=== PATIENT | female | born 1985 | race Two or more races ===

== ENCOUNTER → 2024-08-19 | Emergency (ER) | payer BC ==
[~2024-08-19] VITALS: Ht 162.6 cm; Wt 65.3 kg
[~2024-08-19] MED LIST: GABA300C PO; MORPHINE SULFATE 2 MG/1 ML DISP.SYRIN ONE; ONDANSETRON ODT 4 MG TAB.RAPDIS ONE
[2024-08-19 21:15] VITALS: O2SAT 98
[2024-08-19 22:17] LABS: BASOPHILS % (AUTO) 0.4 % (0.0-2.0); EOSINOPHILS # (AUTO) 0.1 K/uL (0.0-0.7); EOSINOPHILS % (AUTO) 1.2 % (0.0-7.0); HEMATOCRIT 37.9 % (31.2-41.9); HEMOGLOBIN 12.8 g/dL (10.9-14.3); LYMPHOCYTES # (AUTO) 2.8 K/uL (0.8-4.8); MEAN CORPUSCULAR HEMOGLOBIN 31.6 uug (24.7-32.8); MEAN CORPUSCULAR HGB CONC 34 g/dL (32.3-35.6); MEAN CORPUSCULAR VOLUME 93.4 fL (75.5-95.3); MONOCYTES # (AUTO) 0.8 K/uL (0.1-1.30); MONOCYTES % (AUTO) 9.3 % (0.0-11.0); NEUTROPHILS # (AUTO) 4.8 K/uL (1.8-8.9); NEUTROPHILS % (AUTO) 56.1 % (38.5-71.5); PLATELET COUNT (AUTO) 254 K/uL (179-408); RED BLOOD CELL COUNT(AUTO) 4.06 MIL/uL (3.63-4.92); RED CELL DISTRIBUTION WIDTH 13.3 % (12.3-17.7); WHITE BLOOD COUNT (AUTO) 8.5 K/uL (3.8-11.8)
[2024-08-19 22:18] LABS: DIFFERENTIAL COMMENT 1
[2024-08-19] MEDS: ONDANSETRON ODT 4 MG TAB.RAPDIS SL ONE (22:22)
[2024-08-19 22:24] LABS: CALCIUM 8.2 mg/dL (8.5-10.1); CARBON DIOXIDE 27 mmol/L (21-32); CHLORIDE 102 mmol/L (98-107); CREATININE 0.5 mg/dL (0.6-1.3); GLUCOSE 93 mg/dL (74-106); POTASSIUM 3.7 mmol/L (3.5-5.1); SODIUM SERUM 139 mmol/L (136-145); UREA NITROGEN, BLOOD 14 mg/dL (7-18)
[2024-08-19] MEDS: MORPHINE SULFATE 2 MG/1 ML DISP.SYRIN IM ONE (22:29)
[2024-08-19 22:30] LABS: ALANINE AMINOTRANSFERASE 19 U/L (14-59); ALBUMIN 3.6 g/dL (3.4-5.0); ALKALINE PHOSPHATASE 55 U/L (50-136); ASPARTATE AMINOTRANSFERASE 13 U/L (15-37); BILIRUBIN,TOTAL 0.4 mg/dL (0.2-1.0); TOTAL PROTEIN, SERUM 6.7 g/dL (6.4-8.2)
[2024-08-19 22:44] LABS: *BILIRUBIN,URIN NEGATIVE (NEGATIVE); *BLOOD, URINE TRACE (NEGATIVE); *CLARITY,URINE CLEAR (CLEAR); *COLOR,URINE YELLOW (YELLOW); *KETONES,URINE NEGATIVE (NEGATIVE); *PROTEIN,URINE NEGATIVE (NEGATIVE); *UROBILINOGEN,URINE 0.2 E.U./dl (NORMAL); LEUKOCYTE ESTERASE ,URINE 1+ (NEGATIVE); NITRITE, URINE NEGATIVE (NEGATIVE); PH,URINE 6.5 (5.0-8.0); UGLUCOSE NEGATIVE (NEGATIVE)
[2024-08-19 22:50] LABS: *URINE HCG, QUAL NEGATIVE (NEGATIVE)
[2024-08-19 22:51] LABS: BACTERIA,URINE FEW /HPF (NONE SEEN); RBC,URINE 0-3 /HPF (0-3); SQUAMOUS EPITHELIAL CELL,UR FEW /HPF (NONE SEEN)
== END | disposition home or self-care (01) ==
LOC: ER 21:22
DX: M79.662 Pain in left lower leg (principal); G62.9 Polyneuropathy, unspecified; R51.9 Headache, unspecified; Z79.899 Other long term (current) drug therapy; Z87.39 Personal history of other diseases of the musculoskeletal system and connective tissue
CPT/HCPCS: 99285; 70450; 93971; 80053; 81001; 84703; 85025; 87086; 36415; 72131; 96372; J2270; A4606; A4663; Q0162

== ENCOUNTER 2024-09-13 18:00 | Emergency (ER) | payer BC ==
[~2024-09-13] VITALS: Ht 165.1 cm; Wt 64.4 kg
[~2024-09-13 18:00] MED LIST changes: -MORPHINE SULFATE 2 MG/1 ML DISP.SYRIN ONE; -ONDANSETRON ODT 4 MG TAB.RAPDIS ONE
[2024-09-13] MEDS ORDERED: CLON1TAB12 PO ×2 (18:07→18:18)
[2024-09-13] MEDS ORDERED: ESCI10TA PO (18:18)
[2024-09-13] MEDS ORDERED: CLONAZEPAM 1 MG TABLET ONE (18:32)
[2024-09-13] MEDS ORDERED: ESCITALOPRAM OXALATE 10 MG TABLET ONE (18:32)
[2024-09-13] MEDS: ESCITALOPRAM OXALATE 10 MG TABLET PO ONE (18:35)
[2024-09-13] MEDS: CLONAZEPAM 0.5 MG TABLET PO ONE (18:36)
[2024-09-13 19:01] VITALS: BP 139/77; TEMP 97.9; O2SAT 99
== END 2024-09-13 18:38 | disposition home or self-care (01) ==
LOC: ER 18:00
DX: F41.9 Anxiety disorder, unspecified (principal); Z76.0 Encounter for issue of repeat prescription; Z79.899 Other long term (current) drug therapy; Z87.39 Personal history of other diseases of the musculoskeletal system and connective tissue
CPT/HCPCS: A4606; A4663